=== PATIENT | female | born 2000 | race Two or more races ===

== ENCOUNTER 2023-12-10 16:44 | Emergency (ER) | payer MEDICAID ==
[~2023-12-10] VITALS: Ht 154.9 cm; Wt 91.4 kg
[2023-12-10 18:52] VITALS: BP 128/88; PULSE 118; RESP 18; TEMP 98.1; O2SAT 99
[2023-12-10] MEDS ORDERED: KETOROLAC TROMETH 30 MG/ML 1ML VIAL IM ONE (19:15)
[2023-12-10] MEDS ORDERED: CYCL-839 PO (21:09)
== END 2023-12-10 21:12 | disposition home or self-care (01) ==
LOC: ER 16:44
DX: R51.9 Headache, unspecified (principal); M79.18 Myalgia, other site; M54.2 Cervicalgia; M25.512 Pain in left shoulder; M25.511 Pain in right shoulder; V43.62XA Car passenger injured in collision with other type car in traffic accident, initial encounter; Y93.89 Activity, other specified; Y92.89 Other specified places as the place of occurrence of the external cause; Y99.8 Other external cause status
CPT/HCPCS: 70450; 72125; 96372; 99285; J1885